=== PATIENT | male | born 1955 | race Caucasian/White ===

== ENCOUNTER 2019-06-19 12:57 | Outpatient (CLI) | payer OTHER ==
[2019-06-19] MEDS ORDERED: multivitamin PO (14:36)
[2019-06-19] MEDS ORDERED: BUPROPION PO (14:36)
[2019-06-19] MEDS ORDERED: fish oil PO (14:36)
[2019-06-19] MEDS ORDERED: cranberry PO (14:36)
[2019-06-19] MEDS ORDERED: cinnamon PO (14:36)
[2019-06-19] MEDS ORDERED: zinc PO (14:36)
[2019-06-19] MEDS ORDERED: vitamin D PO (14:36)
[2019-06-19] MEDS ORDERED: HYDR-36 PO (14:36)
[2019-06-19] MEDS ORDERED: vitamin B complex PO (14:36)
[2019-06-19] MEDS ORDERED: FLUT1BLS INH (14:36)
[2019-06-19] MEDS ORDERED: vitamin C PO (14:36)
[2019-06-19] MEDS ORDERED: PALMETTO PO (14:36)
[2019-06-19] MEDS ORDERED: diclofenac cream TP (14:36)
[2019-06-19] MEDS ORDERED: TAMS-11 PO (14:36)
[2019-06-19] MEDS ORDERED: IBUP1TAB76 PO (14:36)
[2019-06-19 14:40] LABS: BASOPHILS # (AUTO) 0.02 x10^3/uL (0-0.1); BASOPHILS % (AUTO) 0 % (0-1); EOSINOPHILS # (AUTO) 0.09 x10^3/uL (0-0.4); EOSINOPHILS % (AUTO) 2 % (1-7); LYMPHOCYTES # (AUTO) 0.99 x10^3/uL (1-3.4); LYMPHOCYTES % (AUTO) 17 % (22-44); MEAN CORPUSCULAR HEMOGLOBIN 31.2 pg (27.5-34.5); MEAN CORPUSCULAR HGB CONC 33.6 g/dL (33.2-36.2); MEAN PLATELET VOLUME 7.8 fL (7.4-10.4); MONOCYTES % (AUTO) 9 % (2-9); NEUTROPHILS # (AUTO) 4.12 x10^3/uL (1.8-6.8); NEUTROPHILS % (AUTO) 72 % (42-75); PLATELET COUNT 206 x10^3/uL (130-400); RED BLOOD COUNT 4.92 x10^6/uL (4.38-5.82); RED CELL DISTRIBUTION WIDTH 13.4 % (9.4-14.8)
[2019-06-19 14:41] LABS: MD NO
[2019-06-19 14:42] LABS: ANION GAP 4 mmol/L (5-15); CALCIUM 9.4 mg/dL (8.5-10.1); CHLORIDE 110 mmol/L (98-107)
[2019-06-19 15:33] LABS: INTERNATIONAL NORMALIZED RATIO 1.04 (0.93-1.1); PROTHROMBIN TIME 10.9 Seconds (9.6-11.5)
[2019-06-19 16:11] LABS: HCT (SEDRATE) 45.8 % (39.2-51.8)
== END 2019-06-19 23:59 | disposition home or self-care (01) ==
LOC: STAR 12:57
PROVIDERS: ATTEND Orthopaedic Surgery Orthopaedic Surgery of the Spine
DX: Z01.818 Encounter for other preprocedural examination (principal); M17.12 Unilateral primary osteoarthritis, left knee
CPT/HCPCS: 36415; 71046; 80048; 83036; 85025; 85610; 85651; 85730; 87081; 93005

== ENCOUNTER 2019-06-26 07:31 | Observation (INO) | payer OTHER ==
[~2019-06-26] VITALS: Ht 171.4 cm; Wt 125.0 kg
[~2019-06-26 07:31] MED LIST: BUPROPION PO; FLUT1BLS INH; HYDR-36 PO; IBUP1TAB76 PO; PALMETTO PO; TAMS-11 PO; cinnamon PO; cranberry PO; diclofenac cream TP; fish oil PO; multivitamin PO; vitamin B complex PO; vitamin C PO; vitamin D PO; zinc PO
[2019-06-26] MEDS ORDERED: VANCOMYCIN PMX 1GM/200ML 200 ML IV STA (07:46)
[2019-06-26 08:20] VITALS: BP 130/82
[2019-06-26] MEDS ORDERED: LACTATED RINGERS 1,000 ML IV SCH (08:23)
[2019-06-26] MEDS ORDERED: ACETAMINOPHEN 500 MG TABLET PO ONE (08:30)
[2019-06-26] MEDS ORDERED: GABAPENTIN 300 MG CAPSULE PO ONE (08:30)
[2019-06-26] MEDS ORDERED: SCOPOLAMINE PATCH, 1.5MG PATCH.TD72 TD ONE (08:30)
[2019-06-26] MEDS ORDERED: KETOROLAC 60 MG/2 ML ONE (10:09)
[2019-06-26] MEDS ORDERED: TRANEXAMIC ACID 100 MG/ML, 10ML ONE (10:09)
[2019-06-26] MEDS ORDERED: morphine SULFATE/PF 1 MG/ML, 10ML ONE (10:10)
[2019-06-26] MEDS ORDERED: ROPIvacaine/PF 0.2%, 20 ML ONE (10:10)
[2019-06-26] MEDS ORDERED: VANCOMYCIN 1,000 MG ONE (10:10)
[2019-06-26] MEDS ORDERED: EPINEPHRINE 1 MG/ML, 1ML ONE (10:10)
[2019-06-26] MEDS ORDERED: MIDAZOLAM 1 MG/ML, 2ML ONE (10:27)
[2019-06-26] MEDS ORDERED: FENTANYL PF 250 MCG/5ML ONE (10:28)
[2019-06-26] MEDS ORDERED: DEXAMETHASONE 4 MG/ML, 1ML ONE ×2 (10:29)
[2019-06-26] MEDS ORDERED: ROCURONIUM 10MG/ML,5ML ONE (10:29)
[2019-06-26] MEDS ORDERED: SUCCINYLCHOLINE 20 MG/ML, 10ML ONE (10:29)
[2019-06-26] MEDS ORDERED: PROPOFOL 10 MG/ML, 20ML ONE (10:29)
[2019-06-26] MEDS ORDERED: CEFAZOLIN 1,000 MG ONE ×3 (10:51→12:01)
[2019-06-26] MEDS ORDERED: HYDROmorphone 2 MG/ML, 1ML IVPush PRN (11:30)
[2019-06-26] MEDS ORDERED: HALOPERIDOL 5 MG/ML IV PRN (11:30)
[2019-06-26] MEDS ORDERED: PROMETHAZINE 12.5 MG SUPP PR PRN (11:30)
[2019-06-26] MEDS ORDERED: LABETALOL 5MG/ML, 20ML IV PRN (11:30)
[2019-06-26] MEDS ORDERED: ALBUTEROL SULFATE 2.5 MG/3 ML NPPB PRN (11:30)
[2019-06-26] MEDS ORDERED: OXYcodone 5 MG/5 ML ORAL.SOL UDC PO PRN (11:30)
[2019-06-26] MEDS ORDERED: ONDANSETRON 2MG/ML, 2ML IV PRN (11:30)
[2019-06-26] MEDS ORDERED: PROMETHAZINE 25 MG/ML, 1ML IV PRN (11:30)
[2019-06-26] MEDS ORDERED: hydrALAzine 20 MG/ML, 1ML IV PRN (11:30)
[2019-06-26] MEDS ORDERED: DIAZEPAM 5 MG/ML, 2ML IVPush PRN (11:30)
[2019-06-26] MEDS ORDERED: MIDAZOLAM 1 MG/ML, 2ML IV PRN (11:30)
[2019-06-26] MEDS ORDERED: MEPERIDINE/PF 25MG/ML,1ML IVPush PRN (11:30)
[2019-06-26] MEDS ORDERED: ONDANSETRON ODT 8 MG PO PRN (11:30)
[2019-06-26] MEDS ORDERED: EPHEDRINE 50 MG/ML, 1ML IVPush PRN (11:30)
[2019-06-26] MEDS ORDERED: ONDANSETRON 2MG/ML, 2ML ONE (12:01)
[2019-06-26] MEDS ORDERED: METHOCARBAMOL 1,000 MG in DEXTROSE 5% 100 ML IV ONE (13:00)
[2019-06-26] MEDS ORDERED: TRANEXAMIC ACID 1,500 MG in SODIUM CHLORIDE 0.9% 100 ML IV ONE (13:00)
[2019-06-26] MEDS ORDERED: FENTANYL PF 100 MCG/2ML ONE (13:24)
[2019-06-26] MEDS ORDERED: OXYcodone 5 MG/5 ML ORAL.SOL UDC ONE (13:24)
[2019-06-26] MEDS: FENTANYL PF 100 MCG/2ML IV PRN ×2 (13:33→13:45)
[2019-06-26] MEDS ORDERED: PROMETHAZINE 25 MG/ML, 1ML IM PRN (16:00)
[2019-06-26] MEDS ORDERED: METOCLOPRAMIDE 5 MG/ML, 2ML IVPush PRN (16:00)
[2019-06-26] MEDS ORDERED: MORPHINE SULFATE 4 MG/ML, 1ML IVPush PRN (16:00)
[2019-06-26] MEDS ORDERED: PROMETHAZINE 25 MG SUPP PR PRN (16:00)
[2019-06-26] MEDS ORDERED: DIPHENHYDRAMINE 50 MG/ML, 1ML IVPush PRN (16:00)
[2019-06-26] MEDS ORDERED: BISACODYL 10 MG SUPP PR PRN (16:00)
[2019-06-26] MEDS ORDERED: ALUMINUM/MAG/SIMETHICONE 30 ML UDC PO PRN (16:00)
[2019-06-26] MEDS ORDERED: LORazepam 1MG TABLET PO PRN (16:00)
[2019-06-26] MEDS ORDERED: METOCLOPRAMIDE 10MG TABLET PO PRN (16:00)
[2019-06-26] MEDS ORDERED: DIPHENHYDRAMINE 25 MG CAPSULE PO PRN (16:00)
[2019-06-26] MEDS ORDERED: ZOLPIDEM 5MG TABLET PO PRN (16:00)
[2019-06-26] MEDS ORDERED: ONDANSETRON 2MG/ML, 2ML IVPush PRN (16:00)
[2019-06-26] MEDS ORDERED: ONDANSETRON ODT 4 MG PO PRN (16:00)
[2019-06-26] MEDS ORDERED: POLYETHYLENE GLYCOL 17 GM PACKET PO PRN (16:00)
[2019-06-26] MEDS ORDERED: SENNA/DOCUSATE TABLET PO PRN (16:00)
[2019-06-26] MEDS ORDERED: SCOPOLAMINE PATCH, 1.5MG PATCH.TD72 TD PRN (16:00)
[2019-06-26] MEDS ORDERED: LORazepam 2 MG/ML, 1ML IV PRN (16:00)
[2019-06-26] MEDS ORDERED: DIAZEPAM 5 MG TABLET PO PRN (16:00)
[2019-06-26] MEDS ORDERED: OXYcodone IR 5MG TABLET PO PRN (16:30)
[2019-06-26] MEDS: D5%-0.45NACL+KCL 20MEQ 1,000 ML IV SCH (17:18)
[2019-06-26] MEDS: KETOROLAC 30 MG/1 ML IVPush SCH (17:46)
[2019-06-26] MEDS: ACETAMINOPHEN 500 MG TABLET PO SCH (17:46)
[2019-06-26] MEDS ORDERED: DEXAMETHASONE 4 MG/ML, 1ML IVPush PRN (18:30)
[2019-06-26 19:12] VITALS: BP 134/68
[2019-06-26] MEDS: CEFAZOLIN PMX 2GM/50ML 50 ML IVPB SCH (19:21)
[2019-06-26] MEDS: SODIUM CHLORIDE FLUSH 10ML SYR IVF SCH (21:00)
[2019-06-26] MEDS: DOCUSATE 100 MG CAPSULE PO SCH (21:38)
[2019-06-26] MEDS: METHOCARBAMOL 1,000 MG in DEXTROSE 5% 100 ML IV SCH (21:53)
[2019-06-27 00:14] VITALS: BP 109/71
[2019-06-27] MEDS: ACETAMINOPHEN 500 MG TABLET PO SCH ×3 (00:23→13:11)
[2019-06-27] MEDS: D5%-0.45NACL+KCL 20MEQ 1,000 ML IV SCH ×2 (02:00→12:00)
[2019-06-27] MEDS: KETOROLAC 30 MG/1 ML IVPush SCH ×2 (02:12→10:00)
[2019-06-27] MEDS: CEFAZOLIN PMX 2GM/50ML 50 ML IVPB SCH (02:53)
[2019-06-27] MEDS ORDERED: ASPIRIN 325 MG TABLET EC PO SCH (03:00)
[2019-06-27 05:06] LABS: BASOPHILS # (AUTO) 0.03 x10^3/uL (0-0.1); BASOPHILS % (AUTO) 0 % (0-1); EOSINOPHILS # (AUTO) 0.01 x10^3/uL (0-0.4); EOSINOPHILS % (AUTO) 0 % (1-7); LYMPHOCYTES # (AUTO) 0.45 x10^3/uL (1-3.4); LYMPHOCYTES % (AUTO) 4 % (22-44); MD NO; MEAN CORPUSCULAR HEMOGLOBIN 31.4 pg (27.5-34.5); MEAN CORPUSCULAR HGB CONC 33.4 g/dL (33.2-36.2); MEAN CORPUSCULAR VOLUME 94.2 fL (81-97); MEAN PLATELET VOLUME 8.1 fL (7.4-10.4); MONOCYTES # (AUTO) 0.97 x10^3/uL (0.2-0.8); MONOCYTES % (AUTO) 9 % (2-9); NEUTROPHILS # (AUTO) 9.44 x10^3/uL (1.8-6.8); NEUTROPHILS % (AUTO) 87 % (42-75); PLATELET COUNT 173 x10^3/uL (130-400); RED BLOOD COUNT 4.06 x10^6/uL (4.38-5.82); RED CELL DISTRIBUTION WIDTH 13.1 % (9.4-14.8)
[2019-06-27] MEDS: METHOCARBAMOL 1,000 MG in DEXTROSE 5% 100 ML IV SCH ×2 (06:04→13:00)
[2019-06-27 08:19] VITALS: BP 114/64
[2019-06-27] MEDS ORDERED: TAMSULOSIN 0.4 MG CAP.ER.24H PO SCH (09:00)
[2019-06-27] MEDS: SODIUM CHLORIDE FLUSH 10ML SYR IVF SCH (09:00)
[2019-06-27] MEDS ORDERED: OMEGA-3/FISH OIL CAPSULE PO SCH (09:00)
[2019-06-27] MEDS ORDERED: FLUTICASONE/VILANTEROL 200-25MCG/INH INH SCH (09:00)
[2019-06-27] MEDS ORDERED: CHOLECALCIFEROL 1,000 UNIT TABLET PO SCH (09:00)
[2019-06-27] MEDS ORDERED: MULTIVITAMIN 1 TABLET PO SCH (09:00)
[2019-06-27] MEDS ORDERED: ASCORBIC ACID 500 MG TABLET PO SCH (09:00)
[2019-06-27] MEDS ORDERED: ZINC SULFATE 220 MG CAPSULE PO SCH (09:00)
[2019-06-27] MEDS: DOCUSATE 100 MG CAPSULE PO SCH (09:26)
[2019-06-27] MEDS: OXYcodone IR 5MG TABLET PO PRN ×2 (09:29→13:28)
[2019-06-27] MEDS ORDERED: OXYC15TA PO (11:10)
[2019-06-27] MEDS ORDERED: DIAZ5TAB4 PO (11:20)
[2019-06-27] MEDS ORDERED: ASPI325T17 PO (11:21)
[2019-06-27] MEDS ORDERED: CEPH-368 PO (11:22)
[2019-06-27] MEDS ORDERED: METHOCARBAMOL 750 MG TABLET ONE (13:25)
[2019-06-27] MEDS ORDERED: METHOCARBAMOL 750 MG TABLET PO PRN (13:30)
[2019-06-27 13:40] VITALS: BP 115/69
== END 2019-06-27 14:45 | disposition home or self-care (01) ==
LOC: OUT 07:31 → 4NE 14:36 → INTOOBSV 15:06 → 4NE 15:06 → OUT 16:08 → DCLOUNGE 06-27 14:30
PROVIDERS: ADMIT Orthopaedic Surgery Orthopaedic Surgery of the Spine; ATTEND Orthopaedic Surgery Orthopaedic Surgery of the Spine
DX: M17.12 Unilateral primary osteoarthritis, left knee (principal); E66.01 Morbid (severe) obesity due to excess calories; N40.0 Benign prostatic hyperplasia without lower urinary tract symptoms; J45.909 Unspecified asthma, uncomplicated; G47.33 Obstructive sleep apnea (adult) (pediatric); Z68.41 Body mass index [BMI] 40.0-44.9, adult; Z79.899 Other long term (current) drug therapy
CPT/HCPCS: 27447; 36415; 73560; 85025; 96365; 96366; 96367; 96375; 96376; 97110; 97161; C1713; C1776; G0378; J0171; J0330; J0690; J1100; J1885; J2250; J2274; J2405; J2704; J2795; J2800; J3010; J3370; J3480; J7120